=== PATIENT | female | born 1950 | race American Indian/Alaskan Native ===

== ENCOUNTER 2017-01-05 22:31 | Emergency (ER) | payer SELFPAY | END 2017-01-05 22:35 | disposition left against medical advice (07) | LOC: E/R 22:31 | DX: Z53.21 Procedure and treatment not carried out due to patient leaving prior to being seen by health care provider (principal) ==

== ENCOUNTER 2017-08-31 16:29 | Emergency (ER) | payer OTHER ==
[~2017-08-31] VITALS: Wt 65.5 kg
[2017-08-31 18:00] LABS: ADD UMIC YES; UR ASCORBIC ACID 40 mg/dL (NEGATIVE); UR BILIRUBIN (Dip) NEGATIVE (NEGATIVE); UR BLOOD (Dip) NEGATIVE (NEGATIVE); UR CLARITY CLEAR (CLEAR); UR COLOR YELLOW (YELLOW); UR GLUCOSE (Dip) NEGATIVE (NEGATIVE); UR KETONES (Dip) NEGATIVE (NEGATIVE); UR LEUKOCYTE ESTERASE (Dip) TRACE Leu/ul (NEGATIVE); UR MUCUS FEW /HPF (NONE SEEN); UR NITRITE (Dip) NEGATIVE (NEGATIVE); UR RBC 1 /HPF (0-5); UR TOTAL PROTEIN (Dip) NEGATIVE (NEGATIVE); UR UROBILINOGEN (Dip) 1+ mg/dL (NEGATIVE)
--- NOTE | 2017-08-31 18:44 | RADRPT ---
PROCEDURE: CT Head without. CLINICAL INDICATION: Headache. TECHNIQUE: The study was performed utilizing a multi-slice, multidetector CT scanner. Direct spira l 1 mm axial sections were obtained through the head without the use of intravenous contrast materia l. 1 or more of the following dose reduction techniques were utilized: Automated exposure control, adjustment of the mA and/or kV according to patient's size, iterative reconstruction technique. Co peterson and sagittal reformations were obtained. The images were reviewed on a PACS workstation. RADIATION DOSE: CTDIvol: 44.4 mGyDLP: 720.2 mGy-cm COMPARISON: No prior studies are available for comparison. FINDINGS: There is no intracranial hemorrhage, extra-axial fluid collection, mass lesion, midline shift or hyd rocephalus. The ventricles, sulci and cisterns are within normal limits. The white matter is unrem arkable. The dave-white matter differentiation is preserved. The basal cisterns are patent. The m idline structures are intact. The orbits, calvarium and extracranial soft tissues are normal in iliana earance. The visualized paranasal sinuses, mastoid air cells and middle ear cavities are normally ae rated. IMPRESSION: 1. No acute intracranial abnormality. No intracranial hemorrhage, extra-axial fluid collection, ma ss lesion or hydrocephalous. RPTAT: HGAS .Leo Abdi MD, MD Date Time Electronically viewed and signed by .Leo Abdi MD, on 08/31/2017 18:44 .S/
--- NOTE | 2017-08-31 18:47 | RADRPT ---
PROCEDURE: CT Cervical Spine without contrast. CLINICAL INDICATION: Cervical spine pain. TECHNIQUE: The study was performed on a multislice multidetector CT scanner. Spiral axial 1 mm im ages were obtained through the cervical spine and reformatted at 2.5 mm slice thickness without cont rast. 1 or more of the following dose reduction techniques were utilized: Automated exposure contr ol, adjustment of the mA and/or kV according to patient's size, iterative reconstruction technique. Coronal and sagittal reformations were obtained. The images were reviewed on a PACS workstation. RADIATION DOSE: CTDIvol: 22.2 mGyDLP: 472.5 mGy-cm COMPARISON: No prior studies are available for comparison. FINDINGS: There is diffuse straightening the cervical spine without reversal of normal cervical lordosis. Ther e are diffuse anterior osteophytes from C3-T1 without significant loss of disc-space height. 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 The vertebral body heights are liliana ntained. There is no evidence of fracture or dislocation. The cervical canal is unremarkable. There is a no bone destruction or sclerosis. The paraspinal soft tissues are unremarkable. No significant paraspinal soft tissue swelling. C2-3: The posterior margin of the disc, thecal sac and neural foramina are normal in appearance. C3-4: There is a 1-2 mm posterior disc/osteophyte complex. The thecal sac and neural foramina are p atent. C4-5: There is a 1-2 mm posterior disc/osteophyte complex. The thecal sac and neural foramina are p atent. There is mild bilateral facet spondylosis. C5-6: There is a 1-2 mm posterior disc/osteophyte complex. The thecal sac and neural foramina are p atent. There is mild bilateral facet spondylosis. C6-7: There is a 1-2 mm posterior disc/osteophyte complex. The thecal sac and neural foramina are patent. There is mild bilateral facet spondylosis. C7-T1: The posterior margin of the disc, thecal sac and neural foramina are normal in appearance. IMPRESSION: 1. No acute abnormality of the cervical spine. No evidence of fracture or dislocation. 2. Straightening of the cervical spine which may be related paraspinal muscle spasm versus position ing. 3. Multilevel mild spondylosis without significant narrowing of the cervical thecal sac or neural f oramina. 4. 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 RPTAT: HGAS .Leo Abdi MD, MD Date Time Electronically viewed and signed by .Leo Abdi MD, on 08/31/2017 18:46 .S/
[2017-08-31] MEDS ORDERED: CYCL-319 PO (19:25)
[2017-08-31] MEDS ORDERED: CEPH-443 PO (19:26)
[2017-08-31 19:43] VITALS: BP 111/76; PULSE 80; RESP 16; TEMP 98.1
--- NOTE | 2017-08-31 20:48 | ERD ---
ER Documentation Chief Complaint Chief Complaint neck, mendez HPI 67-year-old female patient with no significant past medical history presents to the ED complaining of a headache and neck pain that started intermittently for the past 10 days. Patient describes it as achy and rates it a 9 out of 10. States that she has been taking Tylenol and ibuprofen with minimal relief of her symptoms. Reports that loud noises make the headache worse. States that the headache does start from the neck and radiates to the posterior part of her head. Denies any rashes, fever, chills, neck stiffness, nausea, vomiting, diarrhea, pain, shortness of breath, weakness, numbness or tingling. ROS All systems reviewed and are negative except as per history of present illness. Medications Home Meds Active Scripts Cephalexin* (Keflex*) 500 Mg Capsule, 500 MG PO QID for 7 Days, CAP Prov:MAX MCQUEEN PA-C 08/31/17 Cyclobenzaprine Hcl* (Cyclobenzaprine Hcl*) 10 Mg Tablet, 10 MG PO QHS, #7 TAB Prov:MAX MCQUEEN PA-C 08/31/17 Allergies Allergies: Coded Allergies: No Known Allergy (Unverified , 08/31/17) PMhx/Soc Medical and Surgical Hx: pt denies Medical Hx, pt denies Surgical Hx Hx Alcohol Use: No Hx Substance Use: No Hx Tobacco Use: No Smoking Status: Never smoker Physical Exam Vitals Vital Signs Date Time Temp Pulse Resp B/P Pulse Ox O2 Delivery O2 Flow Rate FiO2 08/31/17 19:43 98.1 80 16 111/76 97 Room Air 08/31/17 16:29 98.3 93 20 119/64 100 Physical Exam Const: Mob-wjg-iritmkkvy, well-nourished. In no acute distress. Head: Atraumatic, normocephalic Eyes: Normal Conjunctiva without injection. No purulent discharge. PERRLA. EOMI ENT: Normal external ear. Ear canal without erythema. Tympanic membrane pearly dave without effusion or bulging. Nasal canal clear with normal turbinates. Moist oropharynx without tonsillar exudates. Non-erythematous pharynx. Uvula midline. No drooling. No trismus. Neck: No cervical midline tenderness. Full range of motion. No meningismus. No cervical lymphadenopathy. No JVD. Resp: Clear to auscultation bilaterally. No wheezing, rhonchi, rales, or crackles. No accessory muscle use. No retractions. Cardio: Regular rate and rhythm. No murmurs, rubs or gallops. Abd: Soft, non tender, non distended. Normal bowel sounds. No palpable masses. No rebound tenderness. No guarding. Negative McBurney's Point. Negative Oneill's Sign. Skin: Normal skin turgor. No petechiae or rashes Back: No midline tenderness. No CVA tenderness. Ext: No cyanosis, or edema. Distal pulses intact bilaterally. Neur: Awake and alert. Normal gait. Normal coordination. Cranial Nerves II- VII intact. Normal finger to nose. Muscle strength 5/5. Sensation intact. Psych: Normal Mood and Affect Results 24 hrs Laboratory Tests Test 08/31/17 17:30 Urine Color YELLOW Urine Clarity CLEAR Urine pH 5.0 Urine Specific [place] 1.020 Urine Ketones NEGATIVEmg/dL Urine Nitrite NEGATIVEmg/dL Urine Bilirubin NEGATIVEmg/dL Urine Urobilinogen 1+mg/dL Urine Leukocyte Esterase TRACELeu/ul Urine Microscopic RBC 1/HPF Urine Microscopic WBC 14/HPF Urine Mucus FEW/HPF Urine Hemoglobin NEGATIVEmg/dL Urine Glucose NEGATIVEmg/dL Urine Total Protein NEGATIVEmg/dl Procedures/MDM This is a 67-year-old female patient with no significant past medical history presents to the ED complaining of a headache and neck pain. Patient is afebrile and nontoxic-appearing. Patient has normal vital signs. A CT of the brain without contrast, CT of the neck was ordered to further evaluate patient. Urinalysis was ordered to further evaluate patient. It shows trace leukocyte esterase with 14 white blood cells. PROCEDURE: CT Head without. CLINICAL INDICATION: Headache. TECHNIQUE: The study was performed utilizing a multi-slice, multidetector CT scanner. Direct spiral 1 mm axial sections were obtained through the head without the use of intravenous contrast material. 1 or more of the following dose reduction techniques were utilized: Automated exposure control, adjustment of the mA and/or kV according to patient's size, iterative reconstruction technique. Coronal and sagittal reformations were obtained. The images were reviewed on a PACS workstation. RADIATION DOSE: CTDIvol: 44.4 mGy DLP: 720.2 mGy-cm COMPARISON: No prior studies are available for comparison. FINDINGS: There is no intracranial hemorrhage, extra-axial fluid collection, mass lesion, midline shift or hydrocephalus. The ventricles, sulci and cisterns are within normal limits. The white matter is unremarkable. The dave-white matter differentiation is preserved. The basal cisterns are patent. The midline structures are intact. The orbits, calvarium and extracranial soft tissues are normal in appearance. The visualized paranasal sinuses, mastoid air cells and middle ear cavities are normally aerated. IMPRESSION: 1. No acute intracranial abnormality. No intracranial hemorrhage, extra-axial fluid collection, mass lesion or hydrocephalous. PROCEDURE: CT Cervical Spine without contrast. CLINICAL INDICATION: Cervical spine pain. TECHNIQUE: The study was performed on a multislice multidetector CT scanner. Spiral axial 1 mm images were obtained through the cervical spine and reformatted at 2.5 mm slice thickness without contrast. 1 or more of the following dose reduction techniques were utilized: Automated exposure control, adjustment of the mA and/or kV according to patient's size, iterative reconstruction technique. Coronal and sagittal reformations were obtained. The images were reviewed on a PACS workstation. RADIATION DOSE: CTDIvol: 22.2 mGy DLP: 472.5 mGy-cm COMPARISON: No prior studies are available for comparison. FINDINGS: There is diffuse straightening the cervical spine without reversal of normal cervical lordosis. There are diffuse anterior osteophytes from C3-T1 without significant loss of disc-space height. 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 The vertebral body heights are maintained. There is no evidence of fracture or dislocation. The cervical canal is unremarkable. There is a no bone destruction or sclerosis. The paraspinal soft tissues are unremarkable. No significant paraspinal soft tissue swelling. C2-3: The posterior margin of the disc, thecal sac and neural foramina are normal in appearance. C3-4: There is a 1-2 mm posterior disc/osteophyte complex. The thecal sac and neural foramina are patent. C4-5: There is a 1-2 mm posterior disc/osteophyte complex. The thecal sac and neural foramina are patent. There is mild bilateral facet spondylosis. C5-6: There is a 1-2 mm posterior disc/osteophyte complex. The thecal sac and neural foramina are patent. There is mild bilateral facet spondylosis. C6-7: There is a 1-2 mm posterior disc/osteophyte complex. The thecal sac and neural foramina are patent. There is mild bilateral facet spondylosis. C7-T1: The posterior margin of the disc, thecal sac and neural foramina are normal in appearance. IMPRESSION: 1. No acute abnormality of the cervical spine. No evidence of fracture or dislocation. 2. Straightening of the cervical spine which may be related paraspinal muscle spasm versus positioning. 3. Multilevel mild spondylosis without significant narrowing of the cervical thecal sac or neural foramina. 4. 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 Patient will also be treated for urinary tract infection. Patient reports some neck muscle tightening likely secondary to muscle spasm. Patient instructed to up with a neurologist with a possible early pseudotumor formation. Low suspicion for intracranial bleed, cavernous sinus thrombosis, carotid dissection , subarachnoid hemorrhage, meningitis, TIA, stroke, subdural hematoma, epidural hematoma, seizures, or other emergent conditions. This was discussed with my supervising physician, Dr. Long who stated that patient can be managed on an outpatient basis. Discharge medications: Keflex, Flexeril Follow up with primary care physician in 1-2 days. Instructed patient to return to the ED sooner for any worsening symptoms. Patient's questions were answered. Patient understood and agreed with discharge plan. Patient discharged stable. Departure Diagnosis: Primary Impression: Neck pain Additional Impression: Head pain Headache type: unspecified Headache chronicity pattern: unspecified pattern Intractability: not intractable Qualified Code: R51 - Nonintractable headache, unspecified chronicity pattern, unspecified headache type Condition: Stable Patient Instructions: Urinary Tract Infections in Women, Your Neck Muscles, Headache, Unspecified, Neck Pain, No Trauma Referrals: COMM[facility]ITY [facility] YOU HAVE RECEIVED A MEDICAL SCREENING EXAM AND THE RESULTS INDICATE THAT YOU DO NOT HAVE A CONDITION THAT REQUIRES URGENT TREATMENT IN THE EMERGENCY DEPARTMENT. FURTHER EVALUATION AND TREATMENT OF YOUR CONDITION CAN WAIT UNTIL YOU ARE SEEN IN YOUR DOCTORS OFFICE WITHIN THE NEXT 1-2 DAYS. IT IS YOUR RESPONSIBILITY TO MAKE AN APPOINTMENT FOR FOLOW-UP CARE. IF YOU HAVE A PRIMARY DOCTOR --you should call your primary doctor and schedule an appointment IF YOU DO NOT HAVE A PRIMARY DOCTOR YOU CAN CALL OUR PHYSICIAN REFERRAL HOTLINE AT IF YOU CAN NOT AFFORD TO SEE A PHYSICIAN YOU CAN CHOSE FROM THE FOLLOWING [facility] [address] [facility] [address] [facility] [address] [facility] [address] [facility] [address] [facility]. [facility] [address] [facility]. [facility] YOU HAVE RECEIVED A MEDICAL SCREENING EXAM AND THE RESULTS INDICATE THAT YOU DO NOT HAVE A CONDITION THAT REQUIRES URGENT TREATMENT IN THE EMERGENCY DEPARTMENT. FURTHER EVALUATION AND TREATMENT OF YOUR CONDITION CAN WAIT UNTIL YOU ARE SEEN IN YOUR DOCTORS OFFICE WITHIN THE NEXT 1-2 DAYS. IT IS YOUR RESPONSIBILITY TO MAKE AN APPOINTMENT FOR FOLOW-UP CARE. IF YOU HAVE A PRIMARY DOCTOR --you should call your primary doctor and schedule and appointment IF YOU DO NOT HAVE A PRIMARY DOCTOR YOU CAN CALL OUR PHYSICIAN REFERRAL HOTLINE AT . IF YOU CAN NOT AFFORD TO SEE A PHYSICIAN YOU CAN CHOSE FROM THE FOLLOWING [facility]: [facility] [address] [place] [address] [facility] [address] [place] [address] [facility] [address] [place] [address] [facility] Additional Instructions: FOLLOW UP WITH YOUR PRIMARY CARE PHYSICIAN TOMORROW for a referral to see a neurologist. Return to this facility if you are not improving as expected - seizure, fever, vomiting, severe headache, rash, etc. MAX MCQUEEN PA-C Aug 31, 2017 20:48
== END 2017-08-31 19:44 | disposition home or self-care (01) ==
LOC: FTE 16:29
DX: M54.2 Cervicalgia (principal)
CPT/HCPCS: 70450; 72125; 81001; 87086

== ENCOUNTER 2018-10-06 08:15 | Emergency (ER) | END 2018-10-06 10:30 | disposition home or self-care (01) ==